=== PATIENT | male | born 1945 | race Caucasian/White ===

== ENCOUNTER 2021-03-16 05:15 | Day surgery (SDC) | payer MEDICARE, MEDICAID ==
[~2021-03-16] VITALS: Ht 177.8 cm; Wt 78.2 kg
[2021-03-16] MEDS ORDERED: DIAZEPAM 5 MG TABLET PO ONE (05:30)
[2021-03-16] MEDS ORDERED: DiphenhydrAMINE HCL 50 MG CAPSULE PO ONE (05:30)
[2021-03-16] MEDS ORDERED: SODIUM CHLORIDE 0.9% 1,000 ML IV ONE (05:30)
[2021-03-16] MEDS ORDERED: ASPIRIN 81 MG CHEWABLE TABLET PO ONE (05:30)
[2021-03-16] MEDS ORDERED: SODIUM CHLORIDE 0.9% 1,000 ML ONE (05:44)
[2021-03-16] MEDS ORDERED: AMLO5TAB66 PO (06:13)
[2021-03-16] MEDS ORDERED: DEXL60CA3 PO (06:13)
[2021-03-16] MEDS ORDERED: DAPA1TAB3 PO (06:13)
[2021-03-16] MEDS ORDERED: LEVO100 PO (06:13)
[2021-03-16] MEDS ORDERED: MULT-1077 PO (06:13)
[2021-03-16 06:18] LABS: GLUCOMETER DEV NAME(LOC) SDS.; GLUCOSE,POINT OF CARE 137 MG/DL (70-110)
[2021-03-16] MEDS ORDERED: TAMS-13 PO (06:23)
[2021-03-16] MEDS ORDERED: ROSU10TA72 PO (06:23)
[2021-03-16] MEDS ORDERED: FINA5TAB41 PO (06:23)
[2021-03-16] MEDS ORDERED: INSLAN SQ (06:23)
[2021-03-16] MEDS ORDERED: NEBI5TAB2 PO (06:23)
[2021-03-16] MEDS ORDERED: MONT-40 PO (06:23)
[2021-03-16] MEDS ORDERED: ICOS1CAP PO (06:23)
[2021-03-16] MEDS ORDERED: LOSA50TA37 PO (06:23)
[2021-03-16] MEDS ORDERED: ASPI81TA87 PO (06:23)
[2021-03-16] MEDS ORDERED: DIAZEPAM 5 MG TABLET ONE (06:49)
[2021-03-16] MEDS ORDERED: DiphenhydrAMINE HCL 50 MG CAPSULE ONE (06:49)
[2021-03-16] MEDS ORDERED: ASPIRIN 81 MG CHEWABLE TABLET ONE (06:49)
[2021-03-16] MEDS ORDERED: IOHEXOL 300 MG/ML 150 ML VIAL ONE (07:10)
[2021-03-16] MEDS ORDERED: LIDOCAINE/PF 1% 30 ML VIAL ONE (07:10)
[2021-03-16] MEDS ORDERED: IOHEXOL 300 MG/ML 100 ML VIAL ONE (07:10)
[2021-03-16] MEDS ORDERED: IOHEXOL 300 MG/ML 50 ML VIAL ONE (07:10)
[2021-03-16] MEDS ORDERED: HEPARIN SODIUM 1000 UNITS/NS 1,000 ML ONE (07:10)
[2021-03-16] MEDS ORDERED: SODIUM BICARBONATE 50 MEQ/50 ML VIAL ONE (07:10)
[2021-03-16 07:47] VITALS: BP 144/54
[2021-03-16] MEDS ORDERED: MIDAZOLAM HCL 2 MG/2 ML VIAL ONE ×2 (07:47→08:10)
[2021-03-16] MEDS ORDERED: FentaNYL CITRATE PF 100 MCG/2 ML VIAL ONE ×2 (07:47→08:30)
[2021-03-16] MEDS ORDERED: DiphenhydrAMINE HCL 50 MG/ML VIAL ONE (08:13)
[2021-03-16] MEDS ORDERED: LIDOCAINE 1% 30 ML/SOD BICARB 8.4% 4 ML SQ ONE (08:15)
[2021-03-16] MEDS ORDERED: IOHEXOL 300 MG/ML 150 ML VIAL IARTER ONE (08:15)
[2021-03-16] MEDS ORDERED: FentaNYL CITRATE PF 100 MCG/2 ML VIAL IVP ONE ×4 (08:15→08:45)
[2021-03-16] MEDS ORDERED: HEPARIN SODIUM 1000 UNITS/NS 1,000 ML IARTER ONE (08:15)
[2021-03-16] MEDS ORDERED: MIDAZOLAM HCL 2 MG/2 ML VIAL IVP ONE ×2 (08:15→09:15)
[2021-03-16] MEDS ORDERED: DiphenhydrAMINE HCL 50 MG/ML VIAL IVP ONE (08:15)
[2021-03-16] MEDS ORDERED: TICAGRELOR 90 MG TABLET ONE (08:22)
[2021-03-16] MEDS ORDERED: HEPARIN SODIUM,PORCINE 5,000 UNITS/ML VIAL IVP ONE ×2 (08:30→08:45)
[2021-03-16] MEDS ORDERED: TICAGRELOR 90 MG TABLET PO ONE (08:45)
[2021-03-16 08:55] VITALS: BP 135/53
== END 2021-03-16 13:15 | disposition home or self-care (01) ==
LOC: CATHLAB 05:15
PROVIDERS: ATTEND Internal Medicine Interventional Cardiology
DX: R07.9 Chest pain, unspecified (principal); I25.10 Atherosclerotic heart disease of native coronary artery without angina pectoris; I70.201 Unspecified atherosclerosis of native arteries of extremities, right leg; E11.9 Type 2 diabetes mellitus without complications; E78.5 Hyperlipidemia, unspecified; Z79.4 Long term (current) use of insulin; Z98.890 Other specified postprocedural states
CPT/HCPCS: 75710; 82962; 93005; 93458; 99152; 99153; C1760; C1874; C1887; C9600; J1200; J1644; J2250; J3010; J3490 ×2; J7030; Q9967 ×3; 36200; 75630; 75716; 92928